=== PATIENT | female | born 1955 | race Caucasian/White ===

== ENCOUNTER 2020-12-23 08:59 | Outpatient (CLI) | payer MEDICARE, MEDICAID | END 2020-12-23 09:00 | disposition home or self-care (01) | LOC: CSHWCC 08:59 | PROVIDERS: ATTEND Nurse Practitioner Family | DX: E03.8 Other specified hypothyroidism (principal); G82.50 Quadriplegia, unspecified; I73.9 Peripheral vascular disease, unspecified; I87.2 Venous insufficiency (chronic) (peripheral); L89.319 Pressure ulcer of right buttock, unspecified stage; L89.320 Pressure ulcer of left buttock, unstageable; M20.42 Other hammer toe(s) (acquired), left foot; V43.72XA Person on outside of car injured in collision with other type car in traffic accident, initial encounter; Z74.01 Bed confinement status | CPT/HCPCS: 97605 ==

== ENCOUNTER 2020-12-30 13:18 | Outpatient (CLI) | payer MEDICARE, MEDICAID | END 2020-12-30 13:19 | disposition home or self-care (01) | LOC: CSHWCC 13:18 | PROVIDERS: ATTEND Nurse Practitioner Family | DX: L89.319 Pressure ulcer of right buttock, unspecified stage (principal); L89.320 Pressure ulcer of left buttock, unstageable; E03.8 Other specified hypothyroidism; G82.50 Quadriplegia, unspecified; I73.9 Peripheral vascular disease, unspecified; I87.2 Venous insufficiency (chronic) (peripheral); M20.42 Other hammer toe(s) (acquired), left foot; V43 Car occupant injured in collision with car, pick-up truck or van; Z74.01 Bed confinement status | CPT/HCPCS: 97605; 99213; G0463 ==

== ENCOUNTER 2021-01-12 12:00 | Outpatient (CLI) | payer OTHER, MEDICARE | END 2021-01-12 12:01 | disposition home or self-care (01) | LOC: CSHWCC 12:00 | PROVIDERS: ATTEND Nurse Practitioner Family | DX: L89.320 Pressure ulcer of left buttock, unstageable (principal); L89.319 Pressure ulcer of right buttock, unspecified stage; I87.2 Venous insufficiency (chronic) (peripheral); E03.8 Other specified hypothyroidism; G82.50 Quadriplegia, unspecified; I73.9 Peripheral vascular disease, unspecified; M20.42 Other hammer toe(s) (acquired), left foot; V43 Car occupant injured in collision with car, pick-up truck or van; Z74.01 Bed confinement status | CPT/HCPCS: 97605 ==

== ENCOUNTER 2021-02-02 11:06 | Outpatient (CLI) | payer OTHER, MEDICARE | END 2021-02-02 11:07 | disposition home or self-care (01) | LOC: CSHWCC 11:06 | PROVIDERS: ATTEND Nurse Practitioner Family | DX: L89.320 Pressure ulcer of left buttock, unstageable (principal); L89.319 Pressure ulcer of right buttock, unspecified stage; E03.8 Other specified hypothyroidism; G82.50 Quadriplegia, unspecified; I73.9 Peripheral vascular disease, unspecified; I87.2 Venous insufficiency (chronic) (peripheral); M20.42 Other hammer toe(s) (acquired), left foot; V43 Car occupant injured in collision with car, pick-up truck or van; Z74.01 Bed confinement status | CPT/HCPCS: 11042; 97605; 99213; G0463 ==

== ENCOUNTER 2021-02-12 11:00 | Outpatient (CLI) | payer OTHER, MEDICARE | END 2021-02-12 11:01 | disposition home or self-care (01) | LOC: CSHWCC 11:00 | PROVIDERS: ATTEND Nurse Practitioner Family | DX: L89.319 Pressure ulcer of right buttock, unspecified stage (principal); L89.320 Pressure ulcer of left buttock, unstageable; I87.2 Venous insufficiency (chronic) (peripheral); I73.9 Peripheral vascular disease, unspecified; E03.8 Other specified hypothyroidism; G82.50 Quadriplegia, unspecified; M20.42 Other hammer toe(s) (acquired), left foot; V43 Car occupant injured in collision with car, pick-up truck or van; Z74.01 Bed confinement status | CPT/HCPCS: 97605; 99213; G0463 ==

== ENCOUNTER 2021-05-13 09:15 | Outpatient (CLI) | payer MEDICARE, MEDICAID | END 2021-05-13 09:16 | disposition home or self-care (01) | LOC: CSHWCC 09:15 | PROVIDERS: ATTEND Nurse Practitioner Family | DX: L89.323 Pressure ulcer of left buttock, stage 3 (principal); I87.2 Venous insufficiency (chronic) (peripheral); I73.9 Peripheral vascular disease, unspecified; E03.8 Other specified hypothyroidism; G82.50 Quadriplegia, unspecified; M20.42 Other hammer toe(s) (acquired), left foot; Z74.01 Bed confinement status; V43 Car occupant injured in collision with car, pick-up truck or van | CPT/HCPCS: 99213; G0463 ==

== ENCOUNTER 2022-04-03 23:03 | Emergency (ER) | payer MEDICARE, MEDICAID ==
[2022-04-04 00:34] LABS: Mean Corpuscular HGB CONC 33.1 g/dL (32.0-36.0); Mean Corpuscular Hemoglobin 28.2 pg (27.0-33.0); Mean Corpuscular Volume 85.4 fl (81.6-98.3); Mean Platelet Volume 9.8 fl (7.4-10.4); Platelet Count 390 10x3/uL (150-450); RBC Distribution Width 14.6 % (11.5-14.5); Red Blood Cell (RBC) Count 5.67 10x6/uL (3.90-5.03); White Blood Cell (WBC) Count 21.1 10x3/uL (3.5-10.5)
[2022-04-04 00:35] LABS: MDiff Complete? YES
[2022-04-04 00:50] LABS: ALT (SGPT) 37 U/L (8-55); AST (SGOT) 35 U/L (5-34); Albumin 4.1 g/dL (3.4-4.8); Alkaline Phosphatase 102 U/L (40-110); Anion Gap 22 mmol/L (10-20); BUN (Urea Nitrogen) 18 mg/dL (9.8-20.1); Bilirubin, Total 0.4 mg/dL (0.2-1.2); Calc. Creatinine Clearance 0 mL/min (70-130); Calcium 10.9 mg/dL (7.8-10.44); Carbon Dioxide 23 mmol/L (23-31); Chloride 100 mmol/L (98-107); Globulin 3.4 g/dL (2.4-3.5); Glucose 123 mg/dL (80-115); Potassium 4.2 mmol/L (3.5-5.1); Protein, Total 7.5 g/dL (5.8-8.1); Sodium 141 mmol/L (136-145)
[2022-04-04 01:10] LABS: Bilirubin Neg (Negative); Blood, Urine 250 (Negative); Clarity Slightly Cloudy (Clear); Glucose, Urine (Dipstick) 50 mg/dL (Negative); Ketone, Urine 5 mg/dL (Negative); Leukocyte 100 (Negative); Nitrite Negative (Negative); Protein, Urine (Dipstick) 500 mg/dl (Neg-Trace); Specific Gravity, Urine 1.015 (1.002-1.036); Urobilinogen Normal mg/dL (Less than 2)
[2022-04-04 01:23] LABS: WBC/HPF Greater than 50 HPF (0-3)
[2022-04-04 01:24] LABS: Bacteria/HPF 2+ HPF (None Seen)
[2022-04-04 03:48] LABS: Band 5 % (5-11); Eosinophils 1 % (0-10); Lymphocytes 12 % (21-51); Monocytes 9 % (0-10); Neutrophil 71 % (42-75); Reactive Lymphocytes 2 % (0-10)
[2022-04-04 03:49] LABS: Platelet Morphology Comment Appears Adequate; RBC Morphology Normal
== END 2022-04-04 02:40 | disposition home or self-care (01) ==
LOC: CSHERS 23:03
DX: N39.0 Urinary tract infection, site not specified (principal); E03.9 Hypothyroidism, unspecified; Z79.899 Other long term (current) drug therapy; Z79.82 Long term (current) use of aspirin; Z79.01 Long term (current) use of anticoagulants
CPT/HCPCS: 36415; 51702; 76856; 80053; 81003; 81015; 85025; 87086

== ENCOUNTER 2022-12-15 15:03 | Outpatient (CLI) | payer MEDICARE, MEDICAID | END 2022-12-15 15:04 | disposition home or self-care (01) | LOC: CSHWCC 15:03 | PROVIDERS: ATTEND Nurse Practitioner Family | DX: L89.616 Pressure-induced deep tissue damage of right heel (principal) | CPT/HCPCS: 97139; G0463; 99212 ==

== ENCOUNTER 2024-09-14 14:24 | Outpatient (CLI) | payer MEDICARE, MEDICAID | END 2024-09-14 14:25 | disposition home or self-care (01) | LOC: CSHMRI 14:24 | PROVIDERS: ATTEND Specialist | DX: M47.24 Other spondylosis with radiculopathy, thoracic region (principal); M47.22 Other spondylosis with radiculopathy, cervical region; M48.02 Spinal stenosis, cervical region; G95.89 Other specified diseases of spinal cord; M47.26 Other spondylosis with radiculopathy, lumbar region | CPT/HCPCS: 72141; 72146; 72148 ==

== ENCOUNTER 2025-07-28 16:27 | Emergency (ER) | payer MEDICARE, OTHER ==
[2025-07-28 17:38] LABS: Glucose, Urine (Dipstick) Normal (Negative); Leukocyte 500 (Negative); Protein, Urine (Dipstick) Negative (Neg-Trace); Specific Gravity, Urine 1.005 (1.005-1.030)
[2025-07-28 17:52] LABS: Bacteria/HPF 4+ HPF (None Seen); CAUTI Indications for Culture Alt mental st,lethar; RBC/HPF 0-3 HPF (0-3); Urine Culture Reflex No No
[2025-07-28] MEDS ORDERED: cefTRIAXone (ROCEPHIN) 2 GM VIAL ONE (18:23)
[2025-07-28 18:41] LABS: #Basophils 0.04 10x3/uL (0.0-0.2); #Eosinophils 0.08 10x3/uL (0.0-0.5); #Monocytes 0.51 10x3/uL (0.0-1.1); #Neutrophils 6.73 10x3/uL (1.5-8.4); %Basophils 0.4 % (0.0-2.0); %Eosinophils 0.8 % (0.0-6.0); %Lymphocytes 22.4 % (18.0-47.0); %Monocytes 5.3 % (0.0-10.0); %Neutrophils 70.3 % (40.0-75.0); Hematocrit 35.5 % (34.9-44.5); Hemoglobin 12.1 g/dL (12.0-15.5); Mean Corpuscular Hemoglobin 29.7 pg (27.0-33.0); Mean Corpuscular Volume 87.2 fL (81.6-98.3); Platelet Count 314 10x3/uL (150-450); Red Blood Cell (RBC) Count 4.07 10x6/uL (3.90-5.03); White Blood Cell (WBC) Count 9.59 10x3/uL (3.5-10.5)
[2025-07-28 19:02] LABS: ALT (SGPT) 22 U/L (Less than 34); AST (SGOT) 19 U/L (11-34); Albumin 3.5 g/dL (3.1-4.5); Alkaline Phosphatase 63 U/L (40-110); Anion Gap 13 mmol/L (10-20); BUN (Urea Nitrogen) 15 mg/dL (9.8-20.1); Bilirubin, Total 0.3 mg/dL (0.3-1.2); Calc. Creatinine Clearance 0 mL/min (70-130); Calcium 9.0 mg/dL (7.8-10.44); Carbon Dioxide 25 mmol/L (23-31); Chloride 96 mmol/L (98-107); Globulin 2.8 g/dL (2.4-3.5); Glucose 116 mg/dL (80-115); Lipase 10 U/L (8-78); Magnesium 1.9 mg/dL (1.6-2.6); Potassium 3.5 mmol/L (3.5-5.1); Sodium 130 mmol/L (136-145)
[2025-07-28 19:04] LABS: Troponin I Less than 0.010 ng/mL (< 0.028)
== END 2025-07-28 20:06 | disposition home or self-care (01) ==
LOC: CSHERS 16:27
DX: N39.0 Urinary tract infection, site not specified (principal); J15.9 Unspecified bacterial pneumonia; I10 Essential (primary) hypertension; I48.91 Unspecified atrial fibrillation; Z79.01 Long term (current) use of anticoagulants
CPT/HCPCS: 71045; 80053; 81001; 83605; 83690; 83735; 84484; 85025; 87086; 87428; 93005; 99284; J0696; 36415; 87077; 93010